=== PATIENT | female | born 1940 | race Caucasian/White ===

== ENCOUNTER 2016-05-07 08:46 | Outpatient (CLI) | payer OTHER | END 2016-05-07 20:06 | disposition home or self-care (01) | LOC: SMA 08:46 | PROVIDERS: ATTEND Family Medicine | DX: Z12.31 Encounter for screening mammogram for malignant neoplasm of breast (principal) | CPT/HCPCS: 77067; G0202 ==

== ENCOUNTER 2016-05-21 11:06 | Outpatient (CLI) | payer OTHER | END 2016-05-21 19:38 | disposition home or self-care (01) | LOC: SMA 11:06 | PROVIDERS: ATTEND Family Medicine | DX: R92.8 Other abnormal and inconclusive findings on diagnostic imaging of breast (principal) | CPT/HCPCS: 77051; G0206 ==

== ENCOUNTER 2018-01-20 12:30 | Outpatient (CLI) | payer BC, OTHER | END 2018-01-20 20:21 | disposition home or self-care (01) | LOC: SMA 12:30 | PROVIDERS: ATTEND Family Medicine | DX: Z12.31 Encounter for screening mammogram for malignant neoplasm of breast (principal) | CPT/HCPCS: 77067 ==

== ENCOUNTER 2020-01-10 11:04 | Outpatient (CLI) | payer OTHER | END 2020-01-10 20:31 | disposition home or self-care (01) | LOC: SMA 11:04 | PROVIDERS: ATTEND Family Medicine | DX: Z12.31 Encounter for screening mammogram for malignant neoplasm of breast (principal) | CPT/HCPCS: 77067 ==

== ENCOUNTER 2021-11-27 03:04 | Emergency (ER) | payer OTHER ==
[~2021-11-27] VITALS: Ht 154.9 cm; Wt 59.0 kg
--- NOTE | 2021-11-27 03:20 | NUR ---
Patient to ER bed 03 to gown for evaluation. Side rails up. Report given to Ioana PURVIS.
[2021-11-27 03:24] VITALS: BP_SYST 107
--- NOTE | 2021-11-27 03:28 | NUR ---
PT CELE FROILAN FROM HOME WITH C/O HAND AND LEG CRAMPING. PT SAYS SHE CHECKED HER BLOOD SUGAR AT 2300 WAS 249 THEN TOOK 15 UNITS OF INSULIN, BG WAS 62 AT 0000. PT DRANK PEPSI THEN RECHECKED BG AT 0100 IT WAS 167. PT BLOOD GLUCOSE WAS 192 ON ARRIVAL. PT A&O X4, SLOW AND STEADY GAIT, AND FOLLOWING COMMANDS.
--- NOTE | 2021-11-27 03:29 | NUR ---
ER MD De La Cruz at bedside
--- NOTE | 2021-11-27 03:40 | NUR ---
Patient presents to ED from home accompanied by with c/o bilateral leg cramps. Patient reports BS was 249 at 2300 prior to 50 units of Lantus insulin administration, at 0000 BS was 62, then patient reports drinking a can of coke and eating a sandwhich and a banana. Patient then rechecked her BS at 0100 and it was 167. Patient reports being worried about blood sugar readings, and reports she didnt eat much yesterday and denied having anything to eat priort to the 50 units of Lantus administration. Patient A/Ox4, ambulatory, resp even and unlabored. Nad noted at this time.
[2021-11-27 04:30] LABS: BASOPHILS # (AUTO) 0.1 K/uL (0.0-0.2); BASOPHILS % (AUTO) 0.6 % (0.0-2.0); EOSINOPHILS # (AUTO) 0.2 K/uL (0.0-0.4); EOSINOPHILS % (AUTO) 2.7 % (0.0-4.0); HEMATOCRIT 31.3 % (36-48); HEMOGLOBIN 10.8 g/dL (12.0-16.0); LYMPHOCYTES # (AUTO) 2.4 K/uL (1.0-5.5); LYMPHOCYTES % (AUTO) 27.8 % (20.5-51.5); MEAN CORPUSCULAR HEMOGLOBIN 30 pg (27-31); MEAN CORPUSCULAR HGB CONC 34 % (32-36); MEAN CORPUSCULAR VOLUME 88 fL (79.0-98.0); MONOCYTES # (AUTO) 0.7 K/uL (0.0-1.0); MONOCYTES % (AUTO) 7.8 % (1.7-9.3); NEUTROPHILS # (AUTO) 5.3 K/uL (1.8-7.7); NEUTROPHILS % (AUTO) 61.1 % (40.0-70.0); PLATELET COUNT (AUTO) 213 K/uL (130-430); RED BLOOD CELL COUNT(AUTO) 3.55 MIL/uL (4.2-6.2); WHITE BLOOD COUNT (AUTO) 8.7 K/uL (4.8-10.8)
[2021-11-27 04:48] LABS: ANION GAP 10 (5-15); CALCIUM 9.3 mg/dL (8.4-11.0); CHLORIDE 99 mmol/L (98-107); CREATININE 1.82 mg/dL (0.55-1.30); GLUCOSE 224 mg/dL (70-99); POTASSIUM 4.2 mmol/L (3.5-5.1); SODIUM SERUM 132 mmol/L (136-145); UREA NITROGEN, BLOOD 55 mg/dL (8-21)
[2021-11-27 04:53] LABS: ALANINE AMINOTRANSFERASE 52 U/L (12-78); ALBUMIN 3.2 g/dL (3.4-4.8); ASPARTATE AMINOTRANSFERASE 49 U/L (10-37); TOTAL BILIRUBIN 0.1 mg/dL (0.0-1.0)
--- NOTE | 2021-11-27 05:31 | NUR ---
Patient resting comfortably in bed with side rails raised. Patient's at bedside. NAD noted at this time.
--- NOTE | 2021-11-27 05:40 | NUR ---
Per ER MD De La Cruz; called lab and spoke with Nazanin from lab and asked when [facility] lab results would be ready. Nazanin from lab stated [facility] lab results would be ready in 5 mins (approx 1545).
[2021-11-27] MEDS ORDERED: MAGNESIUM SULFATE/D5W 100 ML IV ONE (06:00)
[2021-11-27] MEDS ORDERED: NACL 0.9% 1,000 ML IV ONE (06:00)
[2021-11-27] MEDS ORDERED: MAGNESIUM SULFATE 1 GM in NS 100 ML IV ONE (06:00)
[2021-11-27] MEDS ORDERED: MAGNESIUM SULFATE 1 GM/2 ML VIAL ONE (06:04)
--- NOTE | 2021-11-27 06:25 | NUR ---
Patient placed on gambling monitor and resting comfortably in bed with side rails raised. Patient's at bedside. Nad noted at this time.
[2021-11-27 06:37] VITALS: BP_SYST 127
--- NOTE | 2021-11-27 07:00 | NUR ---
Patient assisted with bedpan.
--- NOTE | 2021-11-27 10:25 | NUR ---
Patient given written and verbal discharge instructions and verbalizes understanding. ER MD discussed with patient the results and treatment provided. Patient in stable condition. ID arm band removed. IV catheter removed intact and dressing applied, no active bleeding. Rx not given. Patient educated on pain management and to follow up with PMD. Pain Scale. Opportunity for questions provided and answered. Medication side effect fact sheet provided.
== END 2021-11-27 07:50 | disposition home or self-care (01) ==
LOC: SED 03:04
DX: R25.2 Cramp and spasm (principal); N28.9 Disorder of kidney and ureter, unspecified; E11.9 Type 2 diabetes mellitus without complications; Z79.899 Other long term (current) drug therapy
CPT/HCPCS: 99285; 96365; 71045; 80053; 82550; 85025; 84484; 36415; 93005; 83605; J3475